=== PATIENT | female | born 1985 | race African-American/Black ===

== ENCOUNTER 2016-08-17 20:01 | Emergency (ER) | payer MEDICAID, SELFPAY ==
[2016-08-17] MEDS ORDERED: Acetaminophen 500 MG TAB ONE (20:17)
[2016-08-17 20:30] LABS: #Basophils 0.1 thou/uL (0.0-0.2); #Eosinphils 0.1 thou/uL (0.0-0.7); #Lymphocytes 2.5 thou/uL (1.20-3.40); #Monocytes 0.7 thou/uL (0.11-0.59); #Neutrophils 8.4 thou/uL (1.40-6.50); %Basophils 0.5 % (0.0-1.0); %Eosinophils 1.2 % (0.0-10.0); %Lymphocytes 21.1 % (21.0-51.0); %Monocytes 5.5 % (0.0-10.0); Hematocrit 40.3 % (36.0-47.0); Mean Platelet Volume 9.1 fL (7.4-10.4); Red Blood Cell (RBC) Count 4.78 mill/uL (4.20-5.40); White Blood Cell (WBC) Count 11.7 thou/uL (4.8-10.8)
[2016-08-17 20:49] LABS: ALT (SGPT) 10 U/L (0-55); AST (SGOT) 12 U/L (5-34); Alkaline Phosphatase 71 U/L (40-150); Anion Gap 12 mmol/L (10-20); BUN (Urea Nitrogen) 7 mg/dL (7.0-18.7); Bilirubin, Total 0.2 mg/dL (0.2-1.2); Calc. Creatinine Clearance 0 mL/min (70-130); Calcium 8.7 mg/dL (7.8-10.44); Carbon Dioxide 23 mmol/L (22-29); Chloride 107 mmol/L (98-107); Estimated GFR-MDRD Greater than 90; Globulin 2.4 g/dL (2.4-3.5); Lipase 10 U/L (8-78); Protein, Total 6.1 g/dL (6.0-8.3)
== END 2016-08-17 21:42 | disposition short-term general hospital (02) ==
LOC: NAV ERS 20:01
DX: O99.89 Other specified diseases and conditions complicating pregnancy, childbirth and the puerperium (principal); R10.13 Epigastric pain; O99.019 Anemia complicating pregnancy, unspecified trimester; O99.330 Smoking (tobacco) complicating pregnancy, unspecified trimester; F17.210 Nicotine dependence, cigarettes, uncomplicated
CPT/HCPCS: 80053; 83690; 84702; 85025; 99284

== ENCOUNTER 2017-03-14 22:51 | Emergency (ER) | payer MEDICAID ==
[2017-03-14 23:20] LABS: Bilirubin Negative (Negative); Blood, Urine Negative (Negative); Clarity Clear (Clear); Glucose, Urine (Dipstick) Negative (Negative); Leukocyte Moderate (Negative); Nitrite Negative (Negative); Protein, Urine (Dipstick) Negative (Neg-Trace); Urobilinogen 0.2 mg/dL (0.2-1.0)
[2017-03-14 23:21] LABS: Bacteria/HPF 2+ HPF (None Seen); RBC/HPF None Seen HPF (0-3)
== END 2017-03-15 00:17 | disposition short-term general hospital (02) ==
LOC: NAV ERS 22:51
DX: O99.89 Other specified diseases and conditions complicating pregnancy, childbirth and the puerperium (principal); R10.30 Lower abdominal pain, unspecified; O99.013 Anemia complicating pregnancy, third trimester; O99.333 Smoking (tobacco) complicating pregnancy, third trimester; F17.210 Nicotine dependence, cigarettes, uncomplicated; Z79.899 Other long term (current) drug therapy; Z3A.37 37 weeks gestation of pregnancy
CPT/HCPCS: 81003; 81015; 87086; 99284

== ENCOUNTER 2017-09-21 09:37 | Emergency (ER) | payer MEDICAID, OTHER, SELFPAY ==
[2017-09-21 10:44] LABS: Bilirubin Negative (Negative); Blood, Urine Moderate (Negative); Clarity Cloudy (Clear); Glucose, Urine (Dipstick) Negative (Negative); Leukocyte Large (Negative); Nitrite Negative (Negative); Protein, Urine (Dipstick) 100 mg/dL (Neg-Trace)
[2017-09-21 10:48] LABS: Pregnancy Test - Urine (BHCG) Negative (Negative); Pregu Control Background? CLEAR/WHITE (CLR/WHITE); Pregu Control Bar Appear? YES (CONTROL BAR)
[2017-09-21 10:51] LABS: Bacteria/HPF 2+ HPF (None Seen); RBC/HPF 21-50 HPF (0-3)
[2017-09-21] MEDS ORDERED: Acetaminophen 500 MG TAB ONE (11:04)
== END 2017-09-21 11:10 | disposition home or self-care (01) ==
LOC: NAV ERS 09:37
DX: J02.9 Acute pharyngitis, unspecified (principal); N39.0 Urinary tract infection, site not specified; M79.1 Myalgia; D64.9 Anemia, unspecified; F17.210 Nicotine dependence, cigarettes, uncomplicated
CPT/HCPCS: 81003; 81015; 81025; 87081; 87430; 99283

== ENCOUNTER 2018-01-12 16:08 | Emergency (ER) | payer MEDICAID, SELFPAY ==
[2018-01-12] MEDS ORDERED: Lidocaine 4% Cream 5 GM TUBE w/ Tegaderm ONE (16:26)
[2018-01-12] MEDS ORDERED: Acetaminophen 500 MG TAB ONE (16:26)
== END 2018-01-12 16:56 | disposition home or self-care (01) ==
LOC: NAV ERS 16:08
DX: S01.81XA Laceration without foreign body of other part of head, initial encounter (principal); S01.01XA Laceration without foreign body of scalp, initial encounter; D64.9 Anemia, unspecified; F17.210 Nicotine dependence, cigarettes, uncomplicated; W11.XXXA Fall on and from ladder, initial encounter
CPT/HCPCS: 12001; 12011

== ENCOUNTER 2018-01-24 14:54 | Emergency (ER) | payer SELFPAY | END 2018-01-24 15:16 | disposition home or self-care (01) | LOC: NAV ERS 14:54 | DX: S01.01XD Laceration without foreign body of scalp, subsequent encounter (principal) ==

== ENCOUNTER 2018-03-12 11:20 | Emergency (ER) | payer SELFPAY ==
[2018-03-12] MEDS ORDERED: Ondansetron ODT 4 MG TAB ONE ×2 (11:42→12:10)
[2018-03-12 11:54] LABS: Pregnancy Test - Urine (BHCG) Negative (Negative)
[2018-03-12 11:55] LABS: Pregu Control Background? CLEAR/WHITE (CLR/WHITE); Pregu Control Bar Appear? YES (CONTROL BAR); Specific Gravity 1.033 (1.002-1.036)
== END 2018-03-12 12:52 | disposition home or self-care (01) ==
LOC: NAV ERS 11:20
DX: K52.9 Noninfective gastroenteritis and colitis, unspecified (principal); F17.210 Nicotine dependence, cigarettes, uncomplicated; D64.9 Anemia, unspecified
CPT/HCPCS: 81025; 99406; Q0162

== ENCOUNTER 2018-12-01 12:21 | Emergency (ER) | payer SELFPAY | END 2018-12-01 12:51 | disposition home or self-care (01) | LOC: NAV ERS 12:21 | DX: J20.8 Acute bronchitis due to other specified organisms (principal); J06.9 Acute upper respiratory infection, unspecified; D64.9 Anemia, unspecified; F17.210 Nicotine dependence, cigarettes, uncomplicated | CPT/HCPCS: 99281 ==

== ENCOUNTER 2019-11-30 19:52 | Emergency (ER) | payer OTHER, SELFPAY ==
[2019-11-30] MEDS ORDERED: Sodium Chloride 0.9% 1,000 ML ONE (20:10)
[2019-11-30] MEDS ORDERED: Bisacodyl 10 MG SUPP ONE (20:45)
== END 2019-11-30 21:05 | disposition home or self-care (01) ==
LOC: NAV ERS 19:52
DX: O99.612 Diseases of the digestive system complicating pregnancy, second trimester (principal); K59.00 Constipation, unspecified; O99.012 Anemia complicating pregnancy, second trimester; O99.312 Alcohol use complicating pregnancy, second trimester; F17.210 Nicotine dependence, cigarettes, uncomplicated
CPT/HCPCS: J7050

== ENCOUNTER 2020-02-15 20:37 | Emergency (ER) | payer OTHER | END 2020-02-15 21:58 | disposition home or self-care (01) | LOC: NAV ERS 20:37 | DX: O90.89 Other complications of the puerperium, not elsewhere classified (principal); O99.03 Anemia complicating the puerperium; O99.335 Smoking (tobacco) complicating the puerperium; F17.210 Nicotine dependence, cigarettes, uncomplicated | CPT/HCPCS: 99281 ==

== ENCOUNTER 2022-04-21 13:03 | Emergency (ER) | payer OTHER ==
[2022-04-21 14:08] LABS: Pregnancy Test - Urine (BHCG) Negative (Negative); Pregu Control Background? CLEAR/WHITE (CLR/WHITE); Pregu Control Bar Appear? YES (CONTROL BAR); Specific Gravity 1.025 (1.002-1.036)
[2022-04-21 14:09] LABS: Bilirubin Negative (Negative); Blood, Urine Negative (Negative); Clarity Clear (Clear); Glucose, Urine (Dipstick) Negative (Negative); Ketone, Urine Negative (Negative); Leukocyte Trace (Negative); Nitrite Negative (Negative); Protein, Urine (Dipstick) Negative (Neg-Trace); Specific Gravity, Urine 1.025 (1.002-1.036); Urobilinogen 0.2 mg/dL (Less than 2)
[2022-04-21 14:13] LABS: Bacteria/HPF Rare-Few HPF (None Seen); RBC/HPF None Seen HPF (0-3); WBC/HPF 0-3 HPF (0-3)
== END 2022-04-21 14:47 | disposition home or self-care (01) ==
LOC: NAV ERS 13:03
DX: M76.61 Achilles tendinitis, right leg (principal); R10.9 Unspecified abdominal pain; F17.210 Nicotine dependence, cigarettes, uncomplicated
CPT/HCPCS: 81003; 81015; 81025; 87086

== ENCOUNTER 2022-06-25 14:26 | Emergency (ER) | payer OTHER ==
[2022-06-25 15:03] LABS: #Eosinphils 0.1 thou/uL (0.0-0.7); #Lymphocytes 2.5 thou/uL (1.20-3.40); #Monocytes 0.7 thou/uL (0.11-0.59); #Neutrophils 7.8 thou/uL (1.40-6.50); %Basophils 0.3 % (0.0-1.0); %Eosinophils 1.3 % (0.0-10.0); %Lymphocytes 22.5 % (21.0-51.0); %Monocytes 5.8 % (0.0-10.0); %Neutrophils 70.1 % (42.0-75.0); Hemoglobin 13.4 g/dL (12.0-16.0); Mean Corpuscular HGB CONC 31.6 g/dL (32.0-36.0); Mean Corpuscular Hemoglobin 26.9 pg (27.0-31.0); Mean Corpuscular Volume 85.2 fl (78.0-98.0); Mean Platelet Volume 8.8 fL (7.4-10.4); Platelet Count 235 10x3/uL (130-400); RBC Distribution Width 13.2 % (11.5-14.5); Red Blood Cell (RBC) Count 4.99 mill/uL (4.20-5.40); White Blood Cell (WBC) Count 11.2 10x3/uL (4.8-10.8)
[2022-06-25 15:19] LABS: BHCG - Serum POSITIVE (NEGATIVE); Pregs Control Bar Appear? YES (CONTROL BAR)
== END 2022-06-25 16:02 | disposition short-term general hospital (02) ==
LOC: NAV ERS 14:26
DX: O20.0 Threatened abortion (principal); O99.331 Smoking (tobacco) complicating pregnancy, first trimester; F17.210 Nicotine dependence, cigarettes, uncomplicated; Z3A.01 Less than 8 weeks gestation of pregnancy
CPT/HCPCS: 84702; 84703; 85025; 86900; 86901; 99284

== ENCOUNTER 2022-10-24 17:50 | Emergency (ER) | payer OTHER ==
[2022-10-24] MEDS ORDERED: Bupivacaine 0.5% 10 ML VIAL ONE ×2 (18:01→18:20)
== END 2022-10-24 18:25 | disposition home or self-care (01) ==
LOC: NAV ERS 17:50
DX: O99.891 Other specified diseases and conditions complicating pregnancy (principal); K08.89 Other specified disorders of teeth and supporting structures; O99.013 Anemia complicating pregnancy, third trimester; Z3A.35 35 weeks gestation of pregnancy
CPT/HCPCS: 64400; J3490